=== PATIENT | female | born 1965 | race Two or more races ===

== ENCOUNTER 2025-02-13 11:15 | Emergency (ER) | payer OTHER, SELFPAY ==
[2025-02-13 11:16] VITALS: BMI 27.7
[2025-02-13 11:28] VITALS: BP 133/80; PULSE 89; RESP 18; TEMP 36.6; O2SAT 99
--- NOTE | 2025-02-13 11:40 | PD.EDADULT ---
ED General RME/HPI General Chief complaint: General Adult/Misc Complain Stated complaint: NEED NEB CONNECTOR FOR MACHINE Time Seen by Provider: 02/13/25 11:17 Source: patient Arrival date/time: 02/13/25 11:15 59-year-old female with no known medical history presents to the emergency room with no chief complaint but states she needs a connection for her nebulizer at home. Mode of arrival: ambulatory Limitations: no limitations Related Data Allergies Allergy/AdvReac Type Severity Reaction Status Date / Time Sulfa (Sulfonamide Allergy Severe Hives Verified 02/13/25 11:18 Antibiotics) tramadol Allergy Severe Difficulty Verified 02/13/25 11:18 Breathing Review of Systems Review of Systems Systems Reviewed: All systems reviewed, normal except as documented Constitutional Constitutional: Reports system reviewed and no additional complaints, except as documented, Denies fatigue, Denies fever(s), Denies headache(s) and Denies weakness Eyes Eyes: Reports system reviewed and no additional complaints, except as documented, Denies blurry vision and Denies change in vision ENT Ears, Nose, Mouth, and Throat: Reports system reviewed and no additional complaints, except as documented, Denies otalgia, Denies headache(s), Denies nasal congestion, Denies throat swelling and Denies vertigo Cardiovascular Cardiovascular: Reports system reviewed and no additional complaints, except as documented, Denies chest pain, Denies dyspnea and Denies dyspnea on exertion Respiratory Respiratory: Reports system reviewed and no additional complaints, except as documented, Denies chest congestion, Denies cough, Denies dyspnea, Denies dyspnea on exertion and Denies wheezing Gastrointestinal Gastrointestinal: Reports system reviewed and no additional complaints, except as documented, Denies abdominal pain, Denies cramping, Denies nausea and Denies vomiting Genitourinary Genitourinary: Reports system reviewed and no additional complaints, except as documented Musculoskeletal Musculoskeletal: Reports system reviewed and no additional complaints, except as documented and Denies back pain Integumentary/Breasts Skin/Breast: Reports system reviewed and no additional complaints, except as documented and Denies wounds Neurologic Neurologic: Reports system reviewed and no additional complaints, except as documented, Denies confusion, Denies headache(s), Denies lack of coordination, Denies vertigo and Denies weakness Psychiatric Psychiatric: Reports system reviewed and no additional complaints, except as documented, Denies anxiety, Denies confusion, Denies depression, Denies paranoia, Denies suicidal ideation and Denies tactile hallucinations Endocrine Endocrine: Reports system reviewed and no additional complaints, except as documented and Denies fatigue Hematologic/Lymphatic Hematologic/Lymphatic: Reports system reviewed and no additional complaints, except as documented and Denies lymphadenopathy Allergic/Immunologic Allergic/Immunologic: Reports system reviewed and no additional complaints, except as documented, Denies throat swelling, Denies urticaria and Denies wheezing Past Medical History Social History SMOKING STATUS: Current every day smoker ED Exam General Limitations: Present no limitations General appearance: Present alert and in no apparent distress Head Head exam: Present atraumatic Eye Eye exam: Present normal appearance, PERRL and EOMI ENT ENT exam: Present normal exam, normal oropharynx and mucous membranes moist Neck Neck exam: Present normal inspection, full ROM and trachea midline Chest Chest inspection: Present normal inspection and symmetric chest wall rise Respiratory Respiratory exam: Present normal lung sounds bilaterally Cardiovascular Cardiovascular exam: Present regular rate, normal rhythm and normal heart sounds Abdominal Exam Abdominal exam: Present soft and normal bowel sounds Extremities Exam Extremities exam: Present normal inspection and full ROM Back Exam Back exam: Present normal inspection and full ROM Neurological Exam Neurological exam: Present alert, oriented X3 and CN II-XII intact Psychiatric Psychiatric exam: Present normal affect and normal mood Skin Skin exam: Present warm, dry, intact and normal color Course Quality Measures none Vital Signs Vital signs: Vital Signs Temperature 98 F 02/13/25 11:28 Pulse Rate 89 02/13/25 11:28 Respiratory Rate 18 02/13/25 11:28 Blood Pressure 133/80 H 02/13/25 11:28 Pulse Oximetry (%) 99 02/13/25 11:28 Oxygen Delivery Method Room Air 02/13/25 11:28 Discharge Plan Plan Patient Disposition: HOME (Self Care) Discharge Disposition comment: Stable Problem List Clinical Impression: Uses nebulizer and inhaler at home Patient/Caregiver Discharge Instructions Additional Instructions: Please follow-up with your primary care provider in the next 24 to 48 hours The nebulizer piece that you needed for your nebulizer was given to you For any evidence of worsening signs or symptoms return to emergency room immediately Print Language: Bengali Stand Alone Forms: Trish Award Info., Work/School Release, Patient Portal Info Letter MDM Narrative MDM hospital course (for use when minimal MDM required): 59-year-old female with no known medical history presents to the emergency room with no chief complaint but states she needs a connection for her nebulizer at home. Patient is hemodynamically stable and in no apparent distress The connection that she needs for her nebulizer was given to her Patient was discharged and educated to follow-up with primary care provider in the next 24 to 48 hours and return to the emergency room for any evidence of worsening signs or symptoms Clinical Information Provided by: none Medical Records reviewed None Meds/Rx considered, not ordered None Labs/Rad/Tests considered, not ordered None Chronic Illness/Social Conditions which may negatively complicate care or outcome(s)-explain: None or not applicable EKG EKG not done Labs Labs: none Medication Administration(s) none Diagnosis Differential Diagnosis ED Complaint MDM: Nebulizer and inhaler at home Diagnoses ruled out and/or further discussions: Nebulizer and inhaler at home
== END 2025-02-13 11:52 | disposition home or self-care (01) ==
LOC: SERX 11:45
PROVIDERS: Emergency Provider Nurse Practitioner Family
DX: T78.40XA Allergy, unspecified, initial encounter (principal)
CPT/HCPCS: 99281

== ENCOUNTER 2025-02-19 19:21 | Emergency (ER) | payer OTHER, SELFPAY ==
[2025-02-19 19:21] VITALS: BMI 27.7
--- NOTE | 2025-02-19 19:24 | EKG_ITS ---
[facility] Test Date: 2025-02-19 Pat Name: FLASH LUNA Department: Room: - Gender: Female Security Assistant: : [id number] Requested By: ED Temporary Provider Order Number: [id number] Reading MD: ED Temporary Provider Measurements Intervals [place] Rate: 75 P: 75 CO: 176 QRS: 4 QRSD: 94 T: 49 QT: 405 QTc: 454 Interpretive Statements SINUS RHYTHM INCOMPLETE RIGHT BUNDLE BRANCH BLOCK [90+ ms QRS DURATION, TERMINAL R IN V1/V2, 40+ ms S IN I/aVL/V4/V5/V6] No previous ECG available for comparison /store/S0/[id number].pdf
--- NOTE | 2025-02-19 19:38 | PD.EDCHEST ---
ED Chest Pain RME/HPI General Chief Complaint: Chest Pain Stated Complaint: CHEST PAIN Time Seen by Provider: 02/19/25 19:41 Arrival date/time: 02/19/25 19:21 RME / HPI RME / HPI narrative: See [facility] for Dr. Liao's HPI documentation. Related Data Previous Rx's ?Medication ?Instructions ?Recorded acetaminophen 300 mg-codeine 30 mg 2 tab PO Q8H PRN pain #10 tabs 02/19/25 tablet azithromycin 500 mg tablet 500 mg PO QDAY 3 days #3 tabs 02/19/25 (Zithromax TRI-JOSH) cefdinir 300 mg capsule 300 mg PO BID #14 caps 02/19/25 prednisone 50 mg tablet 50 mg PO BID 3 days #6 tabs 02/19/25 Allergies Allergy/AdvReac Type Severity Reaction Status Date / Time Sulfa (Sulfonamide Allergy Severe Hives Verified 02/13/25 11:18 Antibiotics) tramadol Allergy Severe Difficulty Verified 02/13/25 11:18 Breathing Review of Systems Review of Systems Systems Reviewed: All systems reviewed, normal except as documented ED Exam Narrative Physical exam: See [facility] for Dr. Liao's physical exam documentation. Course Course Course Narrative: CXR is ordered for determining the etiology of chest pain. Quality Measures none Orders Category Date Time Status Bedside COVID-19 Antigen Test NOW Care 02/19/25 19:42 Completed EKG (ED ONLY) *Do not use* NOW Care 02/19/25 19:24 Completed Saline [Insert IV] NOW Care 02/19/25 19:42 Completed Straight [In and Out Catheter] X1 Care 02/19/25 19:42 Completed EKG (ED Only) Stat Exams 02/19/25 19:24 Draft XR chest 1V portable Stat Exams 02/19/25 19:46 Completed BNP [B-Type Natriuretic Peptide] Stat Lab 02/19/25 20:12 Completed Bilirubin,Direct Stat Lab 02/19/25 20:12 Completed Blood Culture (Lab) Stat Lab 02/19/25 20:47 Received CBC Stat Lab 02/19/25 20:12 Completed CMP [Comprehensive Metabolic Panel] Stat Lab 02/19/25 20:12 Completed D-Dimer Stat Lab 02/19/25 20:12 Completed Influenza A & B Rapid Panel Stat Lab 02/19/25 20:06 Completed Magnesium Stat Lab 02/19/25 20:12 Completed TSH [Thyroid Stimulating Hormone] Stat Lab 02/19/25 20:12 Completed Troponin I Stat Lab 02/19/25 20:12 Completed UA, C/S IF [Urinalysis, C/S if Indicated] Stat Lab 02/19/25 20:25 Completed ACETAMINOPHEN w/COD 300-30 [Tylenol w/Cod #3] Med 02/19/25 19:44 Discontinued 2 tab PO X1 ONE Azithromycin Po [Zithromax PO] Med 02/19/25 20:24 Discontinued 500 mg PO X1 ONE Levalbuterol Rt [Xopenex Rt Diane] Med 02/19/25 19:44 Discontinued 7.5 mg INH X1 ONE Magnesium Sulfate 2 GM Ivpb [Magnesium Sulfate Ivpb] Med 02/19/25 19:44 Discontinued 2 gm in 50 ml IV X1 MethylPREDNISolone.* [SoluMEDROL Inj] Med 02/19/25 19:44 Discontinued 125 mg IVP X1 ONE Sodium Chloride Rt Diane 0.9% [NS Rt Diane 0.9%] Med 02/19/25 19:44 Discontinued 3 ml INH PRN PRN cefTRIAXone/D5w 1gm IV premix [Rocephin/D5w 1gm IV Med 02/19/25 20:24 Discontinued premix] 1 gm in 50 ml IV X1 Vital Signs Vital signs: Vital Signs Temperature 98.7 F 02/19/25 19:41 Pulse Rate 73 02/19/25 19:41 Respiratory Rate 20 02/19/25 19:41 Blood Pressure 126/63 02/19/25 19:41 Pulse Oximetry (%) 97 02/19/25 19:41 Oxygen Delivery Method Room Air 02/19/25 19:41 Chest Pain MDM Narrative MDM Narrative:: This section includes all my notes and documentations, including HPI, PE, and ED course. Saul Liao MD HPI: 59yo female here with about a week history of worsening cough, productive cough, purulent sputum, chest pain with breathing, and dyspnea. Has COPD and CHF. Continues to smoke. No fever. No other complaints. ROS: All negative except as documented in HPI. Physical Exam: General: Alert and oriented. Hacking cough noted. Eyes: Conjunctivae and lids clear. ENT: No nasal congestion. Pharynx normal. TM normal bilaterally. Neck: Supple. Heart: RRR. Lungs: In mild respiratory distress. Decreased air movement with severe rhonchi. Abdomen: Soft and nontender. Normal bowel sounds. No distension. No rebound or guarding. Back: No CVA tenderness. Skin: Warm and dry. Neuro: Alert and oriented X 3. I reviewed all diagnostic test results. My interpretation of the EKG is sinus rhythm with nonspecific ST-T changes. My interpretation of the chest x-ray is infiltrates. Blood tests and urine tests are unremarkable. COVID/Influenza negative. At this point, diagnoses include: Pneumonia COPD exacerbation Treatment here included: Xopenex 7.5 mg neb treatment Solu-Medrol 125 mg IV MgSO4 2 gram IV Rocephin 1 g and Zithromax 500 IV Two Tylenol #3 Significant improvement noted. Recommended a trial of outpatient treatment. Based on my best medical judgment, made decision no further evaluation or treatment indicated at this time. Patient understands and agrees to the discharge instructions customized and printed, see below. Discharge instructions from Dr. Liao: --No physical exertion for 3 days to help rest the lungs. ?No smoking or exposure to smoking or pets or dust or cold or humidity. --Zithromax and cefdinir to kill the germs causing the pneumonia. --Prednisone to help decrease the swelling in the airways. --Breathing treatments at home as currently scheduled and in between as needed. --Tylenol codeine for severe cough or severe pain. --See a private doctor next week on 02/24/2025 if not completely better. --Seek immediate medical care with worsening or with any concerns. Saul Liao MD Patient data External records reviewed:: [facility] previous records (Per chart review, patient was seen here on 02/13/25 for using a nebulizer and inhaler at home.) Clinical information provided by:: patient Social determinants that could affect healthcare access:: none Patient has the following chronic illnesses:: none How is presenting disease/condition affected by chronic disease/condition?: no chronic disease Evaluation data The following diagnostics were reviewed and interpreted by me:: lab results, radiology exam(s) and EKG tracing(s) (My interpretation of the EKG is: Sinus rhythm (75 bpm) with nonspecific ST-T changes. Saul Liao MD) Lab and/or radiology exams considered but not ordered:: none Interpretation Summary: I reviewed all diagnostic test results. My interpretation of the EKG is sinus rhythm with nonspecific ST-T changes. My interpretation of the chest x-ray is infiltrates. Blood tests and urine tests are unremarkable. COVID/Influenza negative. Medications / Prescriptions Medications or Prescriptions considered but not ordered:: none Medication administrations:: Medication Administration History Discontinued Medications Acetaminophen/Codeine Phosphate (Acetaminophen W/Cod 300-30 Tablet) 2 tab PO X1 ONE Stop: 02/19/25 19:45 Last Admin: 02/19/25 20:18 Dose: 2 tab Documented By: BELEM Azithromycin (Azithromycin 250 Mg Tablet) 500 mg PO X1 ONE Stop: 02/19/25 20:25 Last Admin: 02/19/25 20:33 Dose: 500 mg Documented By: BELEM Magnesium Sulfate (Magnesium Sulfate Ivpb) 2 gm in 50 mls @ 25 mls/hr IV X1 ONE Stop: 02/19/25 21:43 Last Infusion: 02/19/25 22:13 Dose: Infused Documented By: Admin: 02/19/25 20:13 Dose: 25 mls/hr Documented By: BELEM Ceftriaxone Sodium/Dextrose (Rocephin/D5w 1gm Iv Premix) 1 gm in 50 mls @ 100 mls/hr IV X1 ONE Stop: 02/19/25 20:53 Last Infusion: 02/19/25 22:12 Dose: Infused Documented By: Infusion: 02/19/25 20:34 Dose: 100 mls/hr Documented By: Admin: 02/19/25 20:33 Dose: 100 mls/hr Documented By: BELEM Levalbuterol HCl (Levalbuterol Rt 1.25 Mg/0.5 Ml Nebu) 7.5 mg INH X1 ONE Stop: 02/19/25 19:45 Last Admin: 02/19/25 20:48 Dose: 7.5 mg Documented By: YUKI Methylprednisolone Sodium Succinate (Methylprednisolone Sod Succ 62.5 Mg/Ml 2ml Vial) 125 mg IVP X1 ONE Stop: 02/19/25 19:45 Last Admin: 02/19/25 20:14 Dose: 125 mg Documented By: BELEM Sodium Chloride (Sodium Chloride Rt Diane 0.9% 3 Ml Nebu) 3 ml INH PRN PRN PRN Reason: SOLN Stop: 03/21/25 19:43 Last Admin: 02/19/25 20:48 Dose: 3 ml Documented By: YUKI Treatment here included: Xopenex 7.5 mg neb treatment Solu-Medrol 125 mg IV MgSO4 2 gram IV Rocephin 1 g and Zithromax 500 IV Two Tylenol #3 Consultations Consultation(s) initiated? (list below): No Diagnosis Chest Pain Differential Diagnosis: pneumothorax, stable angina, atypical chest pain, st elevation myocardial infarction, costochondritis and other (COPD exacerbation, bronchitis, Influenza, COVID, viral syndrome) Most likely diagnosis given after review of the tests above:: Pneumonia COPD exacerbation Admission Indicated Admission indicated?: not indicated Explain why admission is indicated or not indicated:: With significant improvement and no condition needing emergent intervention, there was no indication for admission. Admission Request Was there a request for admission?: No Disposition Plan Disposition Plan: Discharge Discharge Attestation Discharge Attestation: The patient and all family members were given an opportunity to ask questions and understood the discharge instructions. Discharge instructions specifically effects, indications for sooner follow up or return to the emergency department, and the expected course of current diagnosis. Patient condition: Stable Discharge Plan Plan Patient Disposition: HOME (Self Care) Prescriptions/Referrals Prescriptions/Med Rec: New acetaminophen-codeine 300-30 mg tablet 2 tab PO Q8H MDD 6 PRN (Reason: pain) Qty: 10 0RF prednisone 50 mg tablet 50 mg PO BID 3 Days Qty: 6 0RF cefdinir 300 mg capsule 300 mg PO BID Qty: 14 0RF azithromycin [Zithromax TRI-JOSH] 500 mg tablet 500 mg PO QDAY 3 Days Qty: 3 0RF Problem List Clinical Impression: Pneumonia, COPD exacerbation Patient/Caregiver Discharge Instructions Discharge Activity: activity as tolerated Education Materials: ED COPD Flare, ED Pneumonia (Adult) Additional Instructions: Discharge instructions from Dr. Liao: --No physical exertion for 3 days to help rest the lungs. ?No smoking or exposure to smoking or pets or dust or cold or humidity. --Zithromax and cefdinir to kill the germs causing the pneumonia. --Prednisone to help decrease the swelling in the airways. --Breathing treatments at home as currently scheduled and in between as needed. --Tylenol codeine for severe cough or severe pain. --See a private doctor next week on 02/24/2025 if not completely better. --Seek immediate medical care with worsening or with any concerns. Print Language: [place] Sudanese Stand Alone Forms: Trish Award Info., Patient Portal Info Letter
[2025-02-19 19:41] VITALS: BP 126/63; PULSE 73; RESP 20; TEMP 37.1; O2SAT 97
--- NOTE | 2025-02-19 19:46 | XR_ITS ---
EXAMINATION: AP chest single view TECHNIQUE: Upright AP portable chest single view Date and time: February 19, 2025, 194 hours INDICATIONS: Chest pain chest pressure beginning 2 days ago. FINDINGS: Prominent hyperexpansion. Bronchitis bronchiectasis at the lung bases. No pulmonary edema. Normal heart size Prominent osteopenia IMPRESSION: COPD Basilar bronchiectasis and bronchitis
[2025-02-19 20:11] VITALS: BP 125/91; PULSE 73; RESP 18; TEMP 37.6; O2SAT 95
[2025-02-19] MEDS: Magnesium Sulfate 2 GM Ivpb 2 GM/50 ML BAG IV (20:13)
[2025-02-19] MEDS: MethylPREDNISolone SOD SUCC 62.5 MG/ML 2ML VIAL 125 MG IVP (20:14)
[2025-02-19] MEDS: ACETAMINOPHEN w/COD 300-30 TABLET 2 TAB PO (20:18)
--- NOTE | 2025-02-19 20:20 | PC.NURSE ---
NURSE SPOKE WITH DR CHOUDHURY CONFIRMING THE DOSE OF 7.5 MG OF XOPONEX. NURSE CALLED PHARMACY TO [facility]
[2025-02-19 20:21] LABS: Basophils # (Auto) 0.1 Thou/mm3 (0.0-0.2); Basophils % (Auto) 1 % (0-2.5); Eosinophils # (Auto) 1.3 Thou/mm3 (0.0-0.5); Eosinophils % (Auto) 13 % (0-10); Hematocrit 43.0 % (36.0-46.0); Hemoglobin 14.4 g/dL (12.0-16.0); Immature Granulocytes Auto 0.02 Thou/mm3 (0.00-0.00); Lymphocytes # (Auto) 2.5 Thou/mm3 (1.0-4.8); Lymphocytes % (Auto) 26 % (10-50); Mean Corpuscular HGB Conc 33.5 g/dl (31.0-37.0); Mean Corpuscular Hemoglobin 32.4 pg (25.0-35.0); Mean Corpuscular Volume 97 fL (80-100); Monocytes # (Auto) 0.8 Thou/mm3 (0.0-0.8); Monocytes % (Auto) 8 % (0-12); Neutrophils # (Auto) 5.0 Thou/mm3 (1.8-7.7); Neutrophils % (Auto) 52 % (37-80); Nucleated Red Blood Cell # 0.00 Thou/mm3 (0.00-0.00); Nucleated Red Blood Cell % 0 /100 WBC (0); Platelet Count 272 Thou/mm3 (140-440); RDW Standard Deviation 44.7 fL (36.4-46.3); Red Blood Count 4.45 Miln/mm3 (4.00-5.20); White Blood Count 9.6 Thou/mm3 (3.6-11.0)
[2025-02-19 20:33] LABS: Collection Type, Urine Clean Catch
[2025-02-19] MEDS: AZITHROMYCIN 250 MG TABLET 500 MG PO (20:33)
[2025-02-19] MEDS: cefTRIAXone/D5w 1gm IV premix 1 GM/50 ML BAG IV (20:33)
[2025-02-19 20:40] LABS: Influenza A Ag Negative; Influenza B Ag Negative
[2025-02-19 20:40] LABS: Bilirubin,Urine Negative (Negative); Blood,Urine Negative (Negative); Clarity,Urine Clear (Clear/Hazy); Color,Urine Yellow (Lt Yel-Yel); Culture Indicated,Urine Contaminated; Glucose, Urine Negative (Negative); Hyaline Casts,Urine < 1 /hpf (0-1); Ketones,Urine Negative (Negative); Leukocyte Esterase,Urine Positive (Negative); Nitrite,Urine Negative (Negative); PH,Urine 5.5 (5.0-7.0); Protein,Urine Negative (Neg - Trace); RBC,Urine 4 /hpf (0-3); Specific Gravity,Urine 1.029 (1.001-1.035); Squamous Epithelial Cell,Urine 13 /hpf (0-5); Urobilinogen,Urine Negative mg/dL (0.0-1.0); WBC,Urine 14 /hpf (0-5)
[2025-02-19 20:42] LABS: D-Dimer < 250 ng/mL (<600)
[2025-02-19 20:45] LABS: B-Type Natriuretic Peptide < 20 pg/mL (0-100)
[2025-02-19] MEDS: LEVALBUTEROL RT 1.25 MG/0.5 ML NEBU 7.5 MG INH (20:48)
[2025-02-19] MEDS: SODIUM CHLORIDE RT SOL 0.9% 3 ML NEBU INH (20:48)
[2025-02-19 20:51] LABS: Alanine Aminotransferase 13 U/L (10-49); Albumin, Serum 4.3 gm/dL (3.4-4.8); Albumin/Globulin Ratio 2.3 (1.2-2.2); Alkaline Phosphatase 96 U/L (46-116); Anion Gap 8 (7-16); Aspartate Amino Transferase 21 U/L (0-34); BUN/Creatinine Ratio 8 Ratio (12-20); Bilirubin,Direct < 0.1 mg/dL (0.0-0.3); Bilirubin,Total 0.2 mg/dL (0.3-1.2); Blood Urea Nitrogen 10 mg/dL (9-23); Calcium 9.6 mg/dL (8.3-10.6); Calcium (Corrected) 9.6 mg/dL (8.5-10.1); Carbon Dioxide 28.2 mMol/L (20.0-31.0); Chloride 106 mMol/L (98-107); Creatinine (Component) 1.2 mg/dL (0.6-1.3); Estimated Creatinine Clearance 57.4 mL/min (>60); Globulin 1.9 gm/dL (2.3-3.5); Glucose 98 mg/dL (74-106); Magnesium 1.9 mg/dL (1.6-2.6); Osmolality,Calculated 282 (275-295); Potassium 3.7 mMol/L (3.4-5.1); Sodium 142 mMol/L (136-145); Thyroid Stimulating Hormone 2.34 uIU/mL (0.55-4.78); Total Protein 6.2 gm/dL (5.7-8.2); Troponin I < 0.020 ng/mL (0.0-0.045); eGFR 52 See Note
[2025-02-19 20:53] VITALS: PULSE 72; RESP 26; O2SAT 100
[2025-02-19 21:50] VITALS: BP 118/57; PULSE 82; RESP 20; TEMP 36.9; O2SAT 93
== END 2025-02-19 22:13 | disposition home or self-care (01) ==
PROVIDERS: Emergency Provider Emergency Medicine
DX: J44.1 Chronic obstructive pulmonary disease with (acute) exacerbation (principal); J44.0 Chronic obstructive pulmonary disease with (acute) lower respiratory infection; J18.9 Pneumonia, unspecified organism; F17.210 Nicotine dependence, cigarettes, uncomplicated; I45.10 Unspecified right bundle-branch block
CPT/HCPCS: 36415; 71045; 80053; 81001; 82248; 83735; 83880; 84443; 84484; 85025; 85379; 87040; 87502; 87635; 93005; 94640; 96365; 96366; 96375; 99284; J0696; J2919; J3475; J7612; A9270